=== PATIENT | female | born 1975 | race Two or more races ===

== ENCOUNTER 2019-06-27 15:37 | Inpatient (IN) | payer BC ==
[~2019-06-27] VITALS: Ht 170.2 cm; Wt 73.5 kg
[2019-06-27] MEDS ORDERED: SODIUM CHLORIDE 0.9% 1,000 ML IV ONE ×2 (16:06→17:31)
[2019-06-27] MEDS ORDERED: INSULIN REGULAR (HUMULIN R) UD 100 UNITS/ML SYR SUBCUT ONE ×2 (16:15→18:00)
[2019-06-27 16:50] LABS: HEMATOCRIT. 40.8 % (36.0-48.0); HEMOGLOBIN. 13.6 g/dL (12.0-16.0); LYMPHOCYTES % 23.5 % (20.0-50.0); MEAN CORPUSCULAR HEMOGLOBIN 26.8 pg (28.0-32.0); MEAN CORPUSCULAR VOLUME 80.4 fL (81.0-99.0); MEAN PLATELET VOLUME 10.7 fl (7.4-10.4); NEUTROPHILS % 67.5 % (40.0-76.0); PLATELET 225 x1000/uL (130-400); RED BLOOD CELL COUNT 5.08 mill/uL (4.2-5.4); RED CELL DISTRIBUTION WIDTH 14.3 % (11.6-14.6)
[2019-06-27 16:55] LABS: CHLORIDE 97 mEq/L (98-107); HCG SCREEN NEGATIVE
[2019-06-27] MEDS ORDERED: INSULIN REGULAR (HUMULIN R) 300UNITS/3ML SUBCUT ONE ×2 (17:00→18:30)
[2019-06-27 17:04] LABS: BETA HYDROXYBUTYRATE 0.8 mMol/L (0.0-0.3)
[2019-06-27] MEDS ORDERED: ACETAMINOPHEN 325MG TABLET PO PRN (19:15)
[2019-06-27] MEDS ORDERED: MAGNESIUM/ALUMINUM HYDROXIDE/SIMETHICONE 30ML UDC PO PRN (19:15)
[2019-06-27] MEDS ORDERED: DEXTROSE 50% WATER 50ML SYRINGE IV PRN (19:15)
[2019-06-27] MEDS ORDERED: ONDANSETRON HCL 4MG/2ML INJ IV PRN (19:15)
[2019-06-27] MEDS ORDERED: DIPHENHYDRAMINE 50MG/ML VIAL IV PRN (19:15)
[2019-06-27] MEDS ORDERED: LORAZEPAM 0.5MG TABLET PO PRN (19:15)
[2019-06-27] MEDS ORDERED: CLONIDINE 0.1MG TABLET PO PRN (19:15)
[2019-06-27 21:26] VITALS: BP 122/86
[2019-06-27] MEDS: BLOOD SUGAR DIAGNOSTIC STRIP TEST SCH (22:46)
[2019-06-27] MEDS: INSULIN LISPRO 100 UNITS/ML SUBCUT SCH (22:48)
[2019-06-27] MEDS: IBUPROFEN 400MG TABLET PO PRN (22:50)
[2019-06-27] MEDS ORDERED: INSULIN GLARGINE UD 100 UNITS/ML SYR SUBCUT SCH (23:00)
[2019-06-27] MEDS: SODIUM CHLORIDE 0.9% 1,000 ML IV SCH (23:29)
[2019-06-27 23:59] VITALS: BP 122/86
[2019-06-28] VITALS: BP 116/79
[2019-06-28] MEDS ORDERED: TEMAZEPAM 15MG CAPSULE PO PRN
[2019-06-28] MEDS ORDERED: IPRATROPIUM/ALBUTEROL 0.5-3(2.5)MG/3ML NEB HHN PRN
[2019-06-28 04:00] VITALS: BP 127/83
[2019-06-28] MEDS: GABAPENTIN 300MG CAPSULE PO SCH ×2 (05:01→13:01)
[2019-06-28] MEDS: IBUPROFEN 400MG TABLET PO PRN (05:05)
[2019-06-28] MEDS: BLOOD SUGAR DIAGNOSTIC STRIP TEST SCH ×3 (06:36→17:10)
[2019-06-28] MEDS: INSULIN LISPRO 100 UNITS/ML SUBCUT SCH ×3 (06:56→17:40)
[2019-06-28 08:00] VITALS: BP 137/88
[2019-06-28] MEDS: SODIUM CHLORIDE 0.9% 1,000 ML IV SCH (08:24)
[2019-06-28] MEDS ORDERED: PAROXETINE HCL 10MG TABLET PO SCH (09:00)
[2019-06-28] MEDS: METFORMIN HCL 500MG TABLET PO SCH ×2 (09:33→17:40)
[2019-06-28] MEDS ORDERED: LOSA100T32 MT (10:14)
[2019-06-28] MEDS ORDERED: LOVA10TA54 MT (10:14)
[2019-06-28 12:00] VITALS: BP 129/90
[2019-06-28] MEDS ORDERED: INFLUENZA VIRUS VACCINE(AFLURIA) 0.5ML SYR IM ONE (12:00)
[2019-06-28] MEDS ORDERED: CEFTRIAXONE 1 G PREMIX 50 ML IV SCH (14:00)
[2019-06-28] MEDS ORDERED: NEOMYCIN-POLYMYXIN-HYDROCORTISONE 1% OTIC SUSP 10ML RIGHT EAR SCH (14:00)
[2019-06-28] MEDS ORDERED: CEFTRIAXONE 1,000 MG in DEXTROSE 5% WATER 50 ML IV SCH (15:00)
[2019-06-28 15:16] VITALS: BP 129/90
[2019-06-28 16:00] VITALS: BP 135/91
[2019-06-28] MEDS ORDERED: ATORVASTATIN CALCIUM 10MG TABLET PO SCH (21:00)
== END 2019-06-28 18:45 | disposition home or self-care (01) | DRG 639 ==
LOC: ER 15:37 → 8WST 18:48 → ENRESERV 19:58 → 8WST 22:00
PROVIDERS: ADMIT Internal Medicine; ATTEND Internal Medicine
DX: E11.00 Type 2 diabetes mellitus with hyperosmolarity without nonketotic hyperglycemic-hyperosmolar coma (NKHHC) (principal); E11.65 Type 2 diabetes mellitus with hyperglycemia; E11.42 Type 2 diabetes mellitus with diabetic polyneuropathy; E78.00 Pure hypercholesterolemia, unspecified; I10 Essential (primary) hypertension; F41.9 Anxiety disorder, unspecified; H60.91 Unspecified otitis externa, right ear; H66.91 Otitis media, unspecified, right ear; J45.909 Unspecified asthma, uncomplicated; R56.9 Unspecified convulsions; Z83.3 Family history of diabetes mellitus
CPT/HCPCS: 36415; 71045; 82010; 82962; 83036; 84703; 90686; 93005; 99285; J0696; J1815; J7030; J7060